=== PATIENT | female | born 1970 | race Two or more races ===

== ENCOUNTER 2023-10-08 09:21 | Outpatient (CLI) | payer OTHER | END 2023-10-08 09:31 | disposition home or self-care (01) | LOC: RX STUDY 09:21 | PROVIDERS: ATTEND Surgery | DX: R93.5 Abnormal findings on diagnostic imaging of other abdominal regions, including retroperitoneum (principal); K62.89 Other specified diseases of anus and rectum; N81.6 Rectocele; K57.30 Diverticulosis of large intestine without perforation or abscess without bleeding; K64.8 Other hemorrhoids ==